=== PATIENT | female | born 1970 | race Caucasian/White ===

== ENCOUNTER 2019-11-15 04:21 | Day surgery (SDC) | payer OTHER ==
[2019-11-14 09:09] VITALS: BMI 21.9
[2019-11-15] MEDS ORDERED: LIDOCAINE HCL/PF 2% SDV 5ML VIAL ONE (07:15)
[2019-11-15] MEDS ORDERED: DEXAMETHASONE SOD PHOSPHATE 4 MG/1 ML VIAL ONE (07:15)
[2019-11-15] MEDS ORDERED: fentaNYL CITRATE 250 MCG/5 ML VIAL ONE (07:15)
[2019-11-15] MEDS ORDERED: ROCURONIUM BROMIDE 50 MG/5 ML SYRINGE ONE (07:16)
[2019-11-15] MEDS ORDERED: MIDAZOLAM HCL 2 MG/2 ML SINGLE DOSE VIAL ONE ×2 (07:16→07:39)
[2019-11-15] MEDS ORDERED: PROPOFOL 20 ML ONE (07:16)
[2019-11-15] MEDS ORDERED: VASOPRESSIN 20 UNITS/ML VIAL IV ONE (07:29)
[2019-11-15] MEDS ORDERED: ROPIVACAINE HCL 0.5% 30ML VIAL ONE (07:53)
--- NOTE | 2019-11-15 08:09 | HP ---
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: Alzheimer's, CVA, Dementia, Migraine, Multiple Sclerosis, Peripheral Neuropathy, Parkinson's, Seizure, Syncope, TIA, Vertigo, Other Cardiovascular: No: AFIB, Aneurysm, Aortic Insufficiency, Aortic Stenosis, CAD, CHF, Deep Vein Thrombosis, HTN, Hyperlipdemia, [place], Mitral Insufficiency, Mitral Stenosis, Murmur, Pulmonary Hypertension, Other Pulmonary: No: Asthma, Bronchitis, Cancer, COPD, O2 Dependent, Pneumonia, Previously Intubated, Pulmonary Embolus, Pulmonary Fibrosis, Sleep Apnea, Other Gastrointestinal: No: Ascites, Cancer, Constipation, Crohn's Disease, Diverticulitis, Diverticulosis, Esophageal Varices, Gastritis, GERD, GI Bleed, Hemorrhoids, Hiatal Hernia, Inflamatory Bowel Disease, Irritable Bowel Disease, Pancreatitis, Peptic Ulcer Disease, Ulcerative Colitis, Other Hepatobiliary: No: Cirrhosis, Cholelithiasis, Cholecystitis, Choledocholithiasis, Hepatitis A, Hepatitis B, Hepatitis C, Other Renal/: No: Renal Failure, Renal Inusuff, BPH, Cancer, Hematuria, Hemodialysis, Neurogenic Bladder, Renal Calculi, UTI, Other Reproductive: No: Ectopic , Endometriosis, Fibroids, PID, Polycystic Ovary Syndrome, Postmenopausal, Other ...LMP: 10/28/19 ...: No Heme/Onc: No: Anemia, B12 Deficiency, Bleeding Disorder, Cancer, Current Chemotherapy, Current Radiation Therapy, Hemochromatosis, Hypercoaguable State, Myeloproliferative Synd, Sickle Cell Disease, Sickle Cell Trait, Thromb ocytopenia, Other Infectious Disease: No: AIDS, C-Diff, Herpes Zoster, HIV, MRSA, STD's, Tuberculosis, VREF, Other Psych: No: Addictions, Anxiety, Bipolar, Depression, Panic, Psychosis, Schizophrenia, Other Musculoskeletal: No: Bursitis, Chronic low back pain, Hemiparesis, Hemiplegia, Osteoarthritis, Paraplegia, Other Rheumatology: No: Fibromyalgia, Gout, Lupus, Rheumatoid Arthritis, Sarcoidosis, Vasculitis, Other ENT: No: Allergic Rhinitis, Sinusitis, Other Endocrine: No: Barbour's Disease, Beatriz's Disease, Diabetes Insipidus, Diabetes Mellitus, Hyperparathyroidism, Hyperthyroidism, Hypothyroidism, Osteopenia, SIADH, Other Dermatology: No: Basal Cell, Cellulitis, Eczema, Melanoma, Psoriasis, Squamous Cell, Other - Past Surgical History Additional Past Surgical History: myomectomy - Advance Directives Advance Directives: Yes: Living Will - Smoking History Smoking history: Current some day smoker Have you smoked in the past 12 months: No - Alcohol/Substance Use Hx Alcohol Use: No History of Substance Use: reports: None - Social History Usual Living Arrangement: Yes: With Significant Other Do you think of yourself as: Straight/Heterosexual ADL: Independent History of Recent Travel: No Home Medications - Allergies Allergies/Adverse Reactions: Allergies Allergy/AdvReac Type Severity Reaction Status Date / Time No Known Allergies Allergy Verified 11/14/19 09:09 - Home Medications Home Medications: Ambulatory Orders Multivitamin 1 each PO DAILY 11/14/19 Family Medical History Family History: Denies Review of Systems - Review of Systems Constitutional: reports: No Symptoms Eyes: reports: No Symptoms HENT: reports: No Symptoms Neck: reports: No Symptoms Cardiovascular: reports: No Symptoms Respiratory: reports: No Symptoms Gastrointestinal: reports: No Symptoms Genitourinary: reports: No Symptoms Breasts: reports: No Symptoms Reported Musculoskeletal: reports: No Symptoms Integumentary: reports: No Symptoms Neurological: reports: No Symptoms Endocrine: reports: No Symptoms Hematology/Lymphatic: reports: No Symptoms Psychiatric: reports: No Symptoms Physical Examination Vital Signs: Vital Signs Temperature 98.2 F 11/15/19 06:37 Pulse Rate 78 11/15/19 06:37 Respiratory Rate 20 11/15/19 06:37 Blood Pressure 108/70 11/15/19 06:37 O2 Sat by Pulse Oximetry (%) 98 11/15/19 06:37 Constitutional: Yes: Well Nourished, No Distress, Calm Eyes: Yes: WNL, Conjunctiva Clear, EOM Intact HENT: Yes: WNL, Atraumatic, Normocephalic Neck: Yes: WNL, Supple, Trachea Midline Cardiovascular: Yes: WNL, Regular Rate and Rhythm Respiratory: Yes: WNL, Regular, CTA Bilaterally Gastrointestinal: Yes: WNL, Normal Bowel Sounds, Soft ...Rectal Exam: Yes: WNL Renal/: Yes: WNL Breast(s): Yes: WNL Musculoskeletal: Yes: WNL Extremities: Yes: WNL Edema: No Peripheral Pulses WNL: Yes Integumentary: Yes: WNL Wound/Incision: Yes: Clean/Dry, Well Approximated Neurological: Yes: WNL, Alert, Oriented ...Motor Strength: WNL Psychiatric: Yes: WNL, Alert, Oriented Assessment/Plan large fibroids, for myomectomies after many years of pain,
[2019-11-15] MEDS ORDERED: ceFAZolin SODIUM 1 GM VIAL ONE (08:23)
[2019-11-15] MEDS ORDERED: ceFAZolin SODIUM 1 GM VIAL IVPB ONE (08:55)
[2019-11-15] MEDS ORDERED: KETOROLAC TROMETHAMINE 30 MG/1 ML VIAL ONE (09:06)
[2019-11-15] MEDS ORDERED: GLYCOPYRROLATE 0.2 MG/1 ML VIAL ONE (09:06)
[2019-11-15] MEDS ORDERED: NEOSTIGMINE METHYLSULFATE 0.5 MG/ML - 10 ML MDV ONE (09:06)
--- NOTE | 2019-11-15 09:49 | PN ---
Progress Note (short form) - Note Progress Note: I assisted Dr. Prince for the entirety of the case.
--- NOTE | 2019-11-15 09:57 | OP ---
Operative Note - Note: Operative Date: 11/15/19 Pre-Operative Diagnosis: fibroids, pelvic pain, menorrhagia Operation: myomectomies Findings: mulpitple fibroids, Post-Operative Diagnosis: Same as Pre-op Surgeon: Kolton Prince Furniture Servicer: Elvis Ennis Anesthesiologist/COMPLETION MANAGER: Gutierrez Hernandez Anesthesia: General Estimated Blood Loss (mls): 400 (10 to 12 intramural, and subserosa fibroids removed ) Operative Report Dictated: Yes
[2019-11-15] MEDS ORDERED: IBUPROFEN 800 MG/8 ML IJ IVPB PRN (10:02)
[2019-11-15] MEDS ORDERED: ACETAMINOPHEN 325 MG TABLET (FP) PO PRN (10:02)
[2019-11-15] MEDS ORDERED: oxyCODONE HCL 5 MG TABLET PO PRN ×2 (10:02)
[2019-11-15] MEDS ORDERED: DEXTROSE 5%-LACTATED RINGERS 1,000 ML IV SCH (10:15)
[2019-11-15] MEDS ORDERED: LACTATED RINGERS SOLUTION 1,000 ML IV SCH (10:30)
[2019-11-15] MEDS: CEFAZOLIN 2 GM in DEXTROSE 5%-WATER - 100 ML IVPB SCH ×2 (16:06→20:32)
--- NOTE | 2019-11-15 19:10 | DS ---
Physical Examination Vital Signs: Vital Signs Temperature 98.8 F 11/15/19 18:56 Pulse Rate 84 11/15/19 18:56 Respiratory Rate 18 11/15/19 18:56 Blood Pressure 110/67 11/15/19 18:56 O2 Sat by Pulse Oximetry (%) 100 11/15/19 18:56 Constitutional: Yes: Well Nourished, No Distress, Calm Eyes: Yes: WNL, Conjunctiva Clear, EOM Intact HENT: Yes: WNL, Atraumatic, Normocephalic Neck: Yes: WNL, Supple, Trachea Midline Cardiovascular: Yes: WNL, Regular Rate and Rhythm Respiratory: Yes: WNL, Regular, CTA Bilaterally Gastrointestinal: Yes: WNL, Normal Bowel Sounds, Soft ...Rectal Exam: Yes: WNL Renal/: Yes: WNL Breast(s): Yes: WNL Musculoskeletal: Yes: WNL Extremities: Yes: WNL Edema: No Peripheral Pulses WNL: Yes Integumentary: Yes: WNL Wound/Incision: Yes: Clean/Dry, Well Approximated Neurological: Yes: WNL, Alert, Oriented ...Motor Strength: WNL Psychiatric: Yes: WNL, Alert, Oriented Discharge Summary Problems reviewed: Yes Reason For Visit: LEIOMYOMA OF UTERUS, UNSPECIFIED Procedures: Principal: myomectomies Hospital Course: uneventful Health Concerns: none Plan of Treatment: oob Condition: Good - Instructions Diet, Activity, Other Instructions: Dr. nair Unit Manager discharge instructions Physical activity Resume your normal everyday activity as tolerated no heavy lifting or exercise until seen by your surgeon. You may walk unlimited wander of and climb stairs. You may resume driving the car when you feel safe and comfortable behind the wheel. No sexual activity as instructed by Dr nair . Wound care If you have a bandage, leave it on, and keep dry for 48-72 hours. After that time discard the outer bandage. If they are tapes on the skin under the out of bandage leave them in place. They will peel off in the next 7 to 10 days. Do Not Peel them off. You may shower the day after surgery. If there are tapes present on the skin, you may shower over them. Diet There are no dietary restrictions. Eat healthy, high-fiber foods. Drink 6 to 8 glasses of liquid each day. This will assist in keeping your bowels are regular. Pain management You may take Tylenol or acetaminophen or Ibuprofen (for example, Motrin, Advil etc.) from my pain prescription medication is ordered should be taken as prescribed for moderate to severe pain. Call Dr. nair for any of the following: Severe pain not relieved by medication Fever of 101 or higher Excessive bleeding or drainage on dressing Inability to urinate Call the office at [phone] for an appointment in seven days. Disposition: HOME - Home Medications Comprehensive Discharge Medication List: Ambulatory Orders Multivitamin 1 each PO DAILY 11/14/19 Prescription Drug Monitoring Program (I-STOP) results: I-STOP reviewed and no issues identified
[2019-11-15] MEDS: CEFAZOLIN 2 GM/D5W 2 GM/50 ML ML IVPB SCH (20:21)
[2019-11-16] MEDS: CEFAZOLIN 2 GM/D5W 2 GM/50 ML ML IVPB SCH (05:00)
[2019-11-16 07:30] VITALS: TEMP 99
[2019-11-16 09:09] LABS: BASO % 0.3 % (0-2.0); EOS % 1.1 % (0-4.5); HEMATOCRIT 32.2 % (32.4-45.2); HEMOGLOBIN 10.7 GM/dL (10.7-15.3); LYMPH % 18.1 % (8-40); MCH 30.4 pg (25.7-33.7); MCHC 33.3 g/dl (32.0-36.0); MEAN CELL VOLUME 91.5 fl (80-96); MEAN PLT VOLUME 9.1 fl (7.5-11.1); MONO % 7.7 % (3.8-10.2); NEUT % 72.8 % (42.8-82.8); PLATELET COUNT 206 K/MM3 (134-434); RBC 3.52 M/mm3 (3.60-5.2); RDW 14.4 % (11.6-15.6); WHITE BLOOD COUNT 7.6 K/mm3 (4.0-10.0)
[2019-11-16 11:37] VITALS: BP 118/75; PULSE 95
--- NOTE | 2019-11-16 14:36 | PATH ---
Surgical Pathology Report Patient Name: VIDAL MOSQUEDA [facility]. Rec. #: [id number] /Age/Gender: 1970 (Age: 49) / F Account: [id number] Location: AMBULATORY SURG Taken: 11/15/2019 Received: 11/15/2019 Reported: 11/16/2019 Physicians: Kolton Prince MD Specimen(s) Received FIBROIDS Clinical History Leiomyoma of uterus Final Diagnosis FIBROIDS, EXCISION: LEIOMYOMAS, 79 G. Electronically Signed Donaldo Pace M.D. Gross Description Received in formalin labeled "fibroids," is a 79 g aggregate of 7 valdovinos-pink, rubbery nodules, consistent with fibroids. The fibroids range from 1.0-5.0 cm in greatest dimension. Sectioning reveals valdovinos, firm to rubbery parenchyma with whorled architecture. No areas of hemorrhage or necrosis are identified. Supervisor Customer Complaint Service sections are submitted in 5 cassettes as follows: 1-3-smaller fibroids; 4-5-largest fibroid. /11/15/2019 saudi/11/15/2019
--- NOTE | 2019-11-17 19:50 | OP ---
DATE OF OPERATION: 11/15/2019 PREOPERATIVE DIAGNOSIS: Multiple fibroid uterus, pelvic pain, menorrhagia. POSTOPERATIVE DIAGNOSIS: Multiple fibroid uterus, pelvic pain, menorrhagia. PROCEDURE: Myomectomy. SURGEON: Kolton Prince MD, and Elvis Ennis MD. ANESTHESIA: General. ANESTHESIOLOGIST: Patrice Nair MD, INDICATION: This is a 49-year-old female patient who was known to have a multiple fibroid uterus. Patient had a myomectomy maybe 15 years ago, and the patient is about 12 weeks size of fibroid uterus, and patient consistent with pelvic pain and menorrhagia, so all the risks and benefits, alternatives explained to the patient. Patient insists on a myomectomy only. Patient does not want to have a hysterectomy, although hysterectomy was explained and offered to the patient, patient insists she just wants to have a myomectomy. DESCRIPTION OF PROCEDURE: So was patient was taken to the OR, placed on operating table in supine position after the general anesthesia was obtained, and the patient's abdomen and pelvis was prepped and draped in the usual sterile manner. Pfannenstiel incision was made. The incision was made through skin, subcutaneous tissue, until the fascia was nicked in the midline. The fascia was extended bilaterally. Intraperitoneal cavity was entered, then we put a [place] retractor inside abdominal cavity, and bowels were packed away anteriorly and superiorly, and the uterus was seen with multiple fibroids, and we saw multiple fibroids intramurally and subserosally, so we attacked the subserous anterior fundus part of the uterus, 3 x 4 cm fibroid was removed 1st, then we proceeded to the anterior surface of uterus and went intramurally, which was about 5 x 5 cm fibroid was removed, and another one in size another 4 x 4 cm fibroid was removed, and then we proceeded to the posterior part of the uterus, and another 4 x 4 cm fibroid was removed, and there were multiple small other intramural and subserosal fibroids all over the uterus, which were removed. We totally removed about 9 fibroids, and then all the incisions from the uterus and uterine cavity was entered, and all the cavity was closed with microsutures with good hemostasis, and the 2nd layer was closed with uterus were closed, and after the sutures, good hemostasis was obtained. The patient tolerated procedure well. Blood loss was about 400 mL, and Interseal applied to the incision site of the uterine fibroid sites. The peritoneum was closed, the fascia was closed, the skin was closed, transferred to recovery room in stable condition. Blood loss about 400 mL. MD MEMO MASON/[id number]
== END 2019-11-16 14:27 | disposition home or self-care (01) ==
LOC: JASU-SURG 04:21 → JASUSAT 04:21 → J6S 13:32 → JASUSAT 11-16 14:27
PROVIDERS: ATTEND Obstetrics & Gynecology
PROC: 0UB90ZZ Excision of Uterus, Open Approach (ICD-10-PCS; principal; 2019-11-15 08:00)
DX: D25.9 Leiomyoma of uterus, unspecified (principal)
CPT/HCPCS: 36415; 84703; 85025; 88305-TC; 94010; 94760